=== PATIENT | female | born 1970 | race Caucasian/White ===

== ENCOUNTER 2017-11-17 23:06 | Emergency (ER) | payer OTHER ==
[2017-11-17 23:14] VITALS: BP 110/67; PULSE 58; TEMP 97.2; BMI 20.9
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
[2017-11-17] MEDS ORDERED: IBUPROFEN 600 MG TABLET (FP) PO ONE ×2 (23:29→23:35)
== END 2017-11-18 00:48 | disposition home or self-care (01) ==
LOC: FER 23:06
CPT/HCPCS: 72050-TC-FY; 99281-25

== ENCOUNTER 2020-08-10 14:32 | Emergency (ER) | payer OTHER | END 2020-08-10 14:55 | disposition home or self-care (01) | LOC: JVIRT 14:32 | DX: Z03.818 Encounter for observation for suspected exposure to other biological agents ruled out (principal) | CPT/HCPCS: C9803; Q3014-GT; U0003 ==

== ENCOUNTER 2020-09-11 12:32 | Emergency (ER) | payer OTHER | END 2020-09-11 12:53 | disposition home or self-care (01) | LOC: JVIRT 12:32 | DX: Z11.59 Encounter for screening for other viral diseases (principal) | CPT/HCPCS: C9803; Q3014-GT; U0003 ==